=== PATIENT | female | born 1955 | race Caucasian/White ===

== ENCOUNTER → 2017-11-28 09:44 | Outpatient (CLI) | payer BC, SELFPAY ==
--- NOTE | 2017-11-28 09:48 | MM_ITS ---
MM Dig screening mamm BI w/CAD CAD Screening COMPARISON: Digital mammograms 11/24/2015 and 11/26/2016 INDICATION: Is a history of breast cancer in patient's mother diagnosed after menopause. TECHNIQUE: Standard CC and MLO images were obtained. R2 CAD reviewed. FINDINGS: The breasts are closed primarily of fat with minimal fibroglandular densities in the upper outer quadrants bilaterally. The findings are bilateral and symmetrical. There are couple benign-appearing calcifications in each breast. There is no suspicious lesion and no suspicious microcalcifications. IMPRESSION: Stable exam with no suspicious lesion seen BI-RADS Category: 2 Benign Finding(s) RECOMMENDED FOLLOW-UP: 1YR - 1 YEAR FOLLOW-UP (A letter has been sent to the patient regarding results of the study.)
== END ==
PROVIDERS: PCP Family Medicine; Visit Provider Family Medicine
DX: Z12.31 Encounter for screening mammogram for malignant neoplasm of breast (principal)
CPT/HCPCS: 77067

== ENCOUNTER → 2018-01-23 11:56 | Outpatient (CLI) | payer BC, SELFPAY ==
[2018-01-23 12:29] LABS: Basophils % 0.3 % (0.1-2.0); Eosinophils # 0.1 K/mm3 (0.0-0.4); Eosinophils % 0.9 % (0.1-12.0); Hematocrit 41.2 % (37.0-47.0); Hemoglobin 12.8 g/dL (12.2-16.2); Lymphocytes # 1.2 K/mm3 (0.7-4.5); Lymphocytes % 13.4 K/mm3 (10-50); Mean Corpuscular Hemoglobin 25.1 pg (27.0-31.2); Monocytes # 0.4 K/mm3 (0.1-1.0); Neutrophils # 7.1 K/mm3 (1.8-7.8); Neutrophils % 81.3 % (37.0-80.0); Platelet Count 226 K/mm3 (142-424); Red Blood Count 5.09 M/mm3 (4.20-5.40); Red Cell Distribution Width 13.6 % (11.5-17.5); White Blood Count 8.7 K/mm3 (4.8-10.8)
[2018-01-23 13:02] LABS: Alanine Aminotransferase 26 U/L (12-78); Albumin Level 3.5 gm/dL (3.4-5.0); Albumin/Globulin Ratio 0.9 (1.1-1.8); Alkaline Phosphatase 116 U/L (46-116); Anion Gap 10.5 mEq/L (5-15); Aspartate Amino Transferase 18 U/L (15-37); Bilirubin,Total 0.4 mg/dL (0.2-1.0); Blood Urea Nitrogen 16 mg/dL (7-18); Calcium 9.4 mg/dL (8.5-10.1); Carbon Dioxide 28 mmol/L (21.0-32.0); Chloride 104 mmol/L (98-107); Creatine Kinase 51 U/L (26-192); Creatine Kinase MB 0.5 ng/ml (0.0-3.6); Creatinine,Serum 0.89 mg/dL (0.55-1.02); Estimated Glomerular Filt Rate 65 ml/min (>60); GFR (African American) 78 ML/MIN (>60); Globulin 4.1 gm/dl (1.3-3.2); Glucose 135 mg/dL (74-106); Magnesium 1.7 mg/dL (1.4-2.2); Potassium 4.5 mmoL/L (3.5-5.1); Sodium 138 mmol/L (136-145); Total Protein,Serum 7.6 gm/dL (6.4-8.2); Troponin I < 0.02 ng/ml (0.00-0.06)
== END ==
PROVIDERS: Visit Provider Family Medicine
DX: R55 Syncope and collapse (principal)
CPT/HCPCS: 36415; 80053; 82550; 82553; 83735; 84484; 85025; 93005

== ENCOUNTER → 2018-12-08 10:10 | Outpatient (CLI) | payer BC, SELFPAY ==
--- NOTE | 2018-12-08 10:14 | MM_ITS ---
MM Dig screening mamm BI w/CAD ORDERING PHYSICIAN : Dony Lowry MD PATIENT AGE: 63 years GENDER: Female COMPARISON: October 2016, 2015. INDICATION: ITS.Routine SCREENING mammogram. No hormones. No new complaints... Family history. Mother with breast cancer postmenopausal TECHNIQUE: Standard CC and MLO images were obtained. R2 CAD reviewed. FINDINGS: Minimal residual fibroglandular elements bilaterally. Moderate fatty replacement no dominant mass nor suspicious mass.No architectural distortion. No suspicious Calcifications in either breast.. A few scattered benign calcifications bilaterally including some small scattered calcifications medial right and left breast . Benign-appearing axillary lymph nodes appear stable. . IMPRESSION: Stable bilateral mammogram with no significant areas of concern. . Lower density breast, facilitates mammography Bilateral follow-up in one year recommended BI-RADS Category: 1 Negative RECOMMENDED FOLLOW-UP: 1YR 1 YEAR FOLLOW-UP (A letter has been sent to the patient regarding results of the study.)
== END ==
PROVIDERS: PCP Family Medicine; Visit Provider Family Medicine
DX: Z12.31 Encounter for screening mammogram for malignant neoplasm of breast (principal)
CPT/HCPCS: 77067

== ENCOUNTER → 2019-11-24 18:00 | Outpatient (CLI) | payer BC, SELFPAY | PROVIDERS: Visit Provider Nurse Practitioner Family | DX: N39.0 Urinary tract infection, site not specified (principal) | CPT/HCPCS: 87086 ==

== ENCOUNTER → 2019-12-12 09:33 | Outpatient (CLI) | payer BC, SELFPAY ==
--- NOTE | 2019-12-12 09:38 | MM_ITS ---
PROCEDURE: MM DIG SCREENING MAMM BI W/CAD CLINICAL INDICATION: SCREENING There is a history of breast cancer in patient's mother. COMPARISON: [facility] DIG MAMM-SCREEN [facility] W/CAD from 11/26/2016 [facility] MM Dig screening mamm BI w/CAD from 11/28/2017 [facility] MM Dig screening mamm BI w/CAD from 12/08/2018 TECHNIQUE: Standard CC and MLO images and 3D Tomosynthesis was obtained. R2 CAD reviewed. FINDINGS: The breasts are composed primarily of fat with scattered fibroglandular densities in the central portions of both breasts. There is a benign-appearing calcification in each breast. There is no suspicious lesion in either breast and no suspicious microcalcifications. IMPRESSION: Fibrofatty parenchyma with no suspicious lesions seen BI-RAD Category: 2 Benign Finding(s) FOLLOW-UP: 1YR 1 Year Follow-up (A letter has been sent to the patient regarding results of the study.) Dictated by: Dr. Tien Newby MD 12/13/2019 11:[address] Tien Newby MD in [place] 12/13/2019 11:16
== END ==
PROVIDERS: PCP Family Medicine; Visit Provider Family Medicine
DX: Z12.31 Encounter for screening mammogram for malignant neoplasm of breast (principal)
CPT/HCPCS: 77063; 77067

== ENCOUNTER → 2020-12-30 08:42 | Outpatient (CLI) | payer BC, SELFPAY ==
--- NOTE | 2020-12-30 08:44 | XR_ITS ---
PROCEDURE: XR DEXA AXIAL SKELETON CLINICAL HISTORY: SCREENING FOR OSTEOPOROSIS The patient is postmenopausal currently taking vitamin-D and has a history of fracture as an adult COMPARISON: No exams were available for comparison FINDINGS: The right hip BMD is 0.770 g per cm sq with a T-score of -1.4. The left hip BMD is 0.637 g per cm squared with a T-score of -2.5. The lumbar spine BMD is 0.830 g per per cm squared with a T-score of -2.0. IMPRESSION: Osteoporosis value left hip, osteopenia values right hip and lumbar spine Based on these results a follow-up exam is recommended in 2 year. Dictated by: Dr. Tien Newby MD 12/30/2020 13:57 Dr. Tien Newby MD in [place] 12/30/2020 13:57
--- NOTE | 2020-12-30 08:45 | MM_ITS ---
PROCEDURE: MM DIG SCREENING MAMM BI W/CAD Digital Breast Tomosynthesis Included CLINICAL INDICATION: SCREENING There is a history of breast cancer in the patient's mother. COMPARISON: [facility] MM Dig screening mamm BI w/CAD from 11/28/2017 [facility] MM Dig screening mamm BI w/CAD from 12/08/2018 MG MM DIG SCREENING MAMM BI W/CAD from 12/12/2019 TECHNIQUE: Standard CC and MLO images and 3D Tomosynthesis was obtained. R2 CAD reviewed. FINDINGS: Scattered fibroglandular densities are seen throughout both breast and the findings are fairly symmetrical bilaterally. There are couple of benign-appearing microcalcifications in each breast. There is no suspicious lesion in either breast and no suspicious microcalcifications. There are stable small nodes in both axilla. IMPRESSION: Fibrofatty parenchyma with no suspicious lesions seen BI-RAD Category: 2 Benign Finding(s) FOLLOW-UP: 1YR 1 Year Follow-up (A letter has been sent to the patient regarding results of the study.) Dictated by: Dr. Tien Newby MD 12/31/2020 08:03 Dr. Tien Newby MD in [place] 12/31/2020 08:03
== END ==
PROVIDERS: PCP Family Medicine; Visit Provider Family Medicine
DX: Z12.31 Encounter for screening mammogram for malignant neoplasm of breast (principal); Z13.820 Encounter for screening for osteoporosis
CPT/HCPCS: 77063; 77067; 77080

== ENCOUNTER 2021-05-19 09:40 | Outpatient (CLI) | payer BC, SELFPAY ==
[2021-05-19 09:52] VITALS: BMI 31.8
[2021-05-19 10:12] LABS: Albumin Level 4.2 g/dl (3.5-5.0)
[2021-05-19 10:14] LABS: Creatinine Clearance Estimated 74 mL/min (50-200); Estimated Glomerular Filt Rate 72 ml/min (>60); GFR (African American) 88 ML/MIN (>60)
[2021-05-19 10:28] VITALS: BP 130/60; PULSE 83; RESP 17; TEMP 36.6; O2SAT 99
[2021-05-19 10:55] VITALS: BP 142/76; PULSE 81; RESP 17; O2SAT 99
== END 2021-05-19 11:00 | disposition home or self-care (01) ==
LOC: INF 09:47
PROVIDERS: Visit Provider Family Medicine
DX: M81.0 Age-related osteoporosis without current pathological fracture (principal)
CPT/HCPCS: 82040; 82310; 82565; 96365; J3489

== ENCOUNTER → 2021-12-31 10:06 | Outpatient (CLI) | payer BC, SELFPAY ==
--- NOTE | 2021-12-31 10:10 | MM_ITS ---
PROCEDURE INFORMATION: Exam: MG Bilateral Screening 3D Mammography Exam date and time: 12/31/2021 10:10 AM Age: 66 years old Clinical indication: Encounter for screening mammogram for malignant neoplasm of breast. Her mother had breast cancer at age 60. TECHNIQUE: Imaging protocol: Bilateral Screening tomosynthesis and 2D mammography including computer-aided detection (CAD) when performed. COMPARISON: No relevant prior studies available. If prior mammogram images are provided, I am happy to add an addendum. Only the reports (no images) were provided from 11/26/2016, 06/11/2019 and 12/13/2019. FINDINGS: MAMMOGRAPHY: Breast composition: The breasts are almost entirely fatty. Mass: No suspicious mass. Architectural distortion: None. Calcifications: No suspicious calcifications. Asymmetric density: None. Skin thickening: None. Axillary adenopathy: None. IMPRESSION: No mammographic evidence of malignancy. Annual screening is recommended unless otherwise clinically indicated. ASSESSMENT: BI-RADS Category 1: Negative
== END ==
PROVIDERS: PCP Family Medicine; Visit Provider Family Medicine
DX: Z12.31 Encounter for screening mammogram for malignant neoplasm of breast (principal)
CPT/HCPCS: 77063; 77067

== ENCOUNTER → 2022-01-13 12:48 | Outpatient (CLI) | payer BC, SELFPAY | PROVIDERS: PCP Family Medicine; Referring Provider Family Medicine; Visit Provider Family Medicine | DX: Z12.31 Encounter for screening mammogram for malignant neoplasm of breast (principal) ==

== ENCOUNTER 2022-05-21 09:45 | Outpatient (CLI) | payer BC, SELFPAY ==
[2022-05-21 09:45] VITALS: BMI 33.6
[2022-05-21 10:19] LABS: Albumin Level 4.3 g/dl (3.5-5.0)
[2022-05-21 10:22] LABS: Calcium 9.4 mg/dl (8.4-10.2); Creatinine Clearance Estimated 77 mL/min (50-200); Estimated Glomerular Filt Rate 72 ml/min (>60); GFR (African American) 87 ML/MIN (>60)
[2022-05-21 10:35] VITALS: BP 120/74; PULSE 68; RESP 20; TEMP 36.9; O2SAT 95
[2022-05-21 11:05] VITALS: BP 147/77; PULSE 78; RESP 20; TEMP 36.9; O2SAT 95
== END 2022-05-21 11:10 | disposition home or self-care (01) ==
LOC: INF 09:46
PROVIDERS: PCP Family Medicine; Visit Provider Family Medicine
DX: M81.0 Age-related osteoporosis without current pathological fracture (principal)
CPT/HCPCS: 82040; 82310; 82565; 96365; J3489

== ENCOUNTER → 2022-10-27 10:10 | Outpatient (CLI) | payer MEDICARE, BC, SELFPAY ==
[2022-10-27 18:34] LABS: Alanine Aminotransferase 30 U/L (12-78); Albumin Level 4.3 g/dl (3.5-5.0); Albumin/Globulin Ratio 1.5 (1.1-1.8); Alkaline Phosphatase 120 U/L (38-126); Anion Gap 14.1 mEq/L (5-15); Aspartate Amino Transferase 33 U/L (14-36); Bilirubin,Total 0.5 mg/dl (0.2-1.3); Blood Urea Nitrogen 16 mg/dl (7-17); Calcium 10.2 mg/dl (8.4-10.2); Carbon Dioxide 26 mmol/L (22.0-30.0); Chloride 105 mmol/L (98-107); Chol/HDL Ratio 2.6 (1-3.5); Cholesterol 156 mg/dl (140-200); Estimated Glomerular Filt Rate 63 ml/min (>60); GFR (African American) 76 ML/MIN (>60); Globulin 2.9 g/dL (1.3-3.2); Glucose 119 mg/dl (74-100); HDL Cholesterol 59 mg/dl (40-60); Potassium 4.1 mmoL/L (3.5-5.1); Sodium 141 mmol/L (136-145); Total Protein,Serum 7.2 g/dl (6.3-8.2); Triglycerides 232 mg/dl (30-150); VLDL Cholesterol 46 mg/dL (0-40)
[2022-10-27 18:45] LABS: Direct LDL Cholesterol 66.29 mg/dL (100-129)
[2022-10-27 18:47] LABS: Microalbumin/Creatinine Ratio 4.8
[2022-10-27 18:49] LABS: Creatinine,Urine Random 207 mg/dL (Not Estab.)
[2022-10-27 18:51] LABS: Basophils # 0.1 K/mm3 (0-0.2); Basophils % 0.9 % (0.1-2.0); Eosinophils # 0.2 K/mm3 (0.0-0.4); Eosinophils % 2.8 % (0.1-12.0); Hematocrit 39.8 % (37.0-47.0); Hemoglobin 12.3 g/dL (12.2-16.2); Lymphocytes # 1.3 K/mm3 (0.7-4.5); Mean Corpuscular HGB Conc 30.8 g/dL (31.8-35.4); Mean Corpuscular Hemoglobin 24.4 pg (27.0-31.2); Mean Corpuscular Volume 79.2 fl (81-99); Mean Platelet Volume 9.8 fl (7.4-10.4); Monocytes # 0.4 K/mm3 (0.1-1.0); Monocytes % 4.8 % (1.7-9.3); Neutrophils # 5.5 K/mm3 (1.8-7.8); Neutrophils % 73.6 % (37.0-80.0); Platelet Count 318 K/mm3 (142-424); Red Blood Count 5.03 M/mm3 (4.20-5.40); Red Cell Distribution Width 15.7 % (11.5-17.5); White Blood Count 7.5 K/mm3 (4.8-10.8)
[2022-10-27 19:04] LABS: Thyroid Stimulating Hormone 1.32 uIU/mL (0.465-4.68)
== END ==
PROVIDERS: PCP Family Medicine; Visit Provider Family Medicine
DX: I10 Essential (primary) hypertension (principal); E78.5 Hyperlipidemia, unspecified
CPT/HCPCS: 80053; 80061; 82043; 82570; 84443; 85025

== ENCOUNTER → 2023-01-18 08:58 | Outpatient (CLI) | payer MEDICARE, BC, SELFPAY ==
--- NOTE | 2023-01-18 08:58 | MM_ITS ---
PROCEDURE INFORMATION: Exam: MG Bilateral Screening 3D Mammography Exam date and time: 01/18/2023 9:02 AM Age: 67 years old Clinical indication: Screening mammogram TECHNIQUE: Imaging protocol: Bilateral Screening tomosynthesis and 2D mammography including computer-aided detection (CAD) when performed. COMPARISON: 1. MG MM DIG SCREENING MAMM BI W/CAD 01/13/2022 12:53 PM 2. MG MM DIG SCREENING MAMM BI W/CAD 12/30/2020 9:08 AM 3. MG MM DIG SCREENING MAMM BI W/CAD 12/12/2019 9:55 AM FINDINGS: MAMMOGRAPHY: Breast composition: There are scattered areas of fibroglandular density. Mass: None. Architectural distortion: No new or suspicious architectural distortion. Calcifications: No new or suspicious calcifications are present Asymmetric density: No new or suspicious asymmetric density is present Skin thickening: None. Axillary adenopathy: None. IMPRESSION: No mammographic evidence of malignancy. Recommend annual screening mammography unless otherwise clinically indicated. The ASSESSMENT: BI-RADS category 1: Negative
--- NOTE | 2023-01-18 08:58 | XR_ITS ---
FINAL REPORT TECHNIQUE: Bone densitometry calculations of the lumbar spine and hips were obtained. CLINICAL HISTORY: screening FINDINGS: DEXA BONE DENSITY AXIAL SKELETON Using L1-4, the bone mineral density of the spine is 0.887 g/cm2, corresponding to T-score of -1.5. Using the left hip, the bone mineral density of the total hip is 0.700 g/cm2, corresponding to a T-score of -2.0. Using the right hip, the bone mineral density of the femoral neck is 0.685 g/cm2, corresponding to a T-score of -1.5. NOTE: T-score: Standard deviation compared with peak bone mass of young adult mean. *Following the recommendations of the International Society of Bone densitometry, classification of hip BMD is based on the lower of two T-scores; total hip or femoral neck. IMPRESSION: Diminished bone mineral density of the lumbar spine and hips consistent with osteopenia. FRAX not reported because: Patient treated for osteoporosis. Reviewed, Interpreted and Dictated by Jens Pinon MD Transcribed by Miladys Correia Authenticated and [facility]
== END ==
PROVIDERS: PCP Family Medicine; Visit Provider Family Medicine
DX: M81.0 Age-related osteoporosis without current pathological fracture (principal); Z12.31 Encounter for screening mammogram for malignant neoplasm of breast
CPT/HCPCS: 77063; 77067; 77080

== ENCOUNTER 2023-11-03 09:59 | Outpatient (CLI) | payer MEDICARE, BC, SELFPAY ==
[2023-11-03 19:59] LABS: Basophils % 0.7 % (0.1-2.0); Eosinophils # 0.1 K/mm3 (0.0-0.4); Eosinophils % 1.3 % (0.1-12.0); Hematocrit 40.1 % (37.0-47.0); Lymphocytes # 1.5 K/mm3 (0.7-4.5); Lymphocytes % 26.1 % (10-50); Mean Corpuscular HGB Conc 32.4 g/dL (31.8-35.4); Mean Corpuscular Hemoglobin 25.7 pg (27.0-31.2); Mean Corpuscular Volume 79.5 fl (81-99); Mean Platelet Volume 10.3 fl (7.4-10.4); Monocytes # 0.4 K/mm3 (0.1-1.0); Monocytes % 6.2 % (1.7-9.3); Neutrophils # 3.7 K/mm3 (1.8-7.8); Neutrophils % 65.7 % (37.0-80.0); Platelet Count 280 K/mm3 (142-424); Red Blood Count 5.05 M/mm3 (4.20-5.40); Red Cell Distribution Width 15.5 % (11.5-17.5); White Blood Count 5.6 K/mm3 (4.8-10.8)
[2023-11-03 20:25] LABS: Chloride 105 mmol/L (98-107)
[2023-11-03 20:26] LABS: Potassium 4.3 mmoL/L (3.5-5.1); Sodium 141 mmol/L (136-145)
[2023-11-03 20:28] LABS: Alanine Aminotransferase 29 U/L (12-78); Alkaline Phosphatase 115 U/L (38-126); Anion Gap 13.3 mEq/L (5-15); Aspartate Amino Transferase 32 U/L (14-36); Bilirubin,Total 0.7 mg/dl (0.2-1.3); Blood Urea Nitrogen 11 mg/dl (7-17); Carbon Dioxide 27 mmol/L (22.0-30.0); Estimated Glomerular Filt Rate 55 ml/min (>60); GFR (African American) 67 ML/MIN (>60); Triglycerides 177 mg/dl (30-150); VLDL Cholesterol 35 mg/dL (0-40)
[2023-11-03 20:29] LABS: Albumin Level 4.3 g/dl (3.5-5.0); Albumin/Globulin Ratio 1.4 (1.1-1.8); Calcium 9.2 mg/dl (8.4-10.2); Chol/HDL Ratio 2.8 (1-3.5); Cholesterol 159 mg/dl (140-200); Globulin 3.1 g/dL (1.3-3.2); Glucose 116 mg/dl (74-100); HDL Cholesterol 57 mg/dl (40-60); Total Protein,Serum 7.4 g/dl (6.3-8.2)
[2023-11-03 20:40] LABS: Direct LDL Cholesterol 73.39 mg/dL (100-129)
[2023-11-03 21:00] LABS: Thyroid Stimulating Hormone 2.03 uIU/mL (0.465-4.68)
[2023-11-03 21:12] LABS: Creatinine,Urine Random 125 mg/dL (Not Estab.)
[2023-11-03 21:17] LABS: Microalbumin < 6.000 mg/L (0-16.7)
[2023-11-03 21:59] LABS: Hemoglobin A1C 5.6 % (4.0-6.0)
[2023-11-03 23:05] LABS: Vitamin B12 613 pg/mL (239-931)
== END 2023-11-04 23:59 | disposition home or self-care (01) ==
PROVIDERS: PCP Nurse Practitioner; Visit Provider Nurse Practitioner
DX: E78.5 Hyperlipidemia, unspecified (principal); F41.9 Anxiety disorder, unspecified; I10 Essential (primary) hypertension; J30.9 Allergic rhinitis, unspecified; K21.9 Gastro-esophageal reflux disease without esophagitis; Z79.899 Other long term (current) drug therapy
CPT/HCPCS: 80053; 80061; 82043; 82570; 82607; 83036; 84443; 85025

== ENCOUNTER 2024-01-20 12:52 | Outpatient (CLI) | payer MEDICARE, BC, SELFPAY ==
--- NOTE | 2024-01-20 12:53 | MM_ITS ---
PROCEDURE INFORMATION: Exam: MG Bilateral Screening 3D Mammography Exam date and time: 01/20/2024 12:50 PM Age: 68 years old Clinical indication: Screening examination TECHNIQUE: Imaging protocol: Bilateral Screening tomosynthesis and 2D mammography including computer-aided detection (CAD) when performed. COMPARISON: 1. MG MM DIG SCREENING MAMM BI W/CAD 01/18/2023 9:02 AM 2. MG MM DIG SCREENING MAMM BI W/CAD 01/13/2022 12:53 PM FINDINGS: MAMMOGRAPHY: Breast composition: There are scattered areas of fibroglandular density. Mass: There is a questionable 0.3cm mass in the middle third of the right approximate 12 o'clock axis. Architectural distortion: None. Calcifications: No suspicious calcifications. Asymmetric density: None. Skin thickening: None. Axillary adenopathy: None. IMPRESSION: Patient to be recalled for spot compression views of the right breast in the CC and MLO projections, a full 90 degree lateral view, and possible right breast ultrasound for further evaluation of a right breast mass. ASSESSMENT: BI-RADS Category 0: Incomplete- Need Additional Imaging Evaluation and/or Prior Mammograms for Comparison.
== END 2024-01-20 23:59 ==
PROVIDERS: PCP Nurse Practitioner; Visit Provider Nurse Practitioner
DX: Z12.31 Encounter for screening mammogram for malignant neoplasm of breast (principal)
CPT/HCPCS: 77063; 77067

== ENCOUNTER 2024-02-07 14:32 | Outpatient (CLI) | payer MEDICARE, BC, SELFPAY ==
--- NOTE | 2024-02-07 14:33 | US_ITS ---
PROCEDURE INFORMATION: Exam: US Right Breast, Complete MG Right Diagnostic Breast Tomosynthesis Exam date and time: 02/07/2024 3:56 PM Age: 68 years old Clinical indication: Patient recalled on the basis of a screening mammogram for further evaluation; Right breast; mass TECHNIQUE: Imaging protocol: Complete ultrasound of all four quadrants of the right breast and the retroareolar regions, including ultrasound of the axilla when performed. Right Diagnostic tomosynthesis and 2D mammography including computer-aided detection (CAD) when performed. Unilateral or bilateral exam. COMPARISON: MG MM DIG MAMM DX UNILAT RT CAD 02/07/2024 2:33 PM FINDINGS: MAMMOGRAPHY: Breast composition: There are scattered areas of fibroglandular density (based on the most recent screening mammogram report). Breast mammogram findings: Digital diagnostic spot compression views of the right breast and 90 degree lateral view of the right breast demonstrate normal overlapping fibroglandular structures without persistent mass or asymmetry identified. ULTRASOUND: Breast ultrasound findings: Sonographic images of the right breast including the retroareolar region, all 4 quadrants and the axilla do not demonstrate any solid or cystic masses. No architectural distortion or acoustical shadowing. No skin thickening or axillary adenopathy. IMPRESSION: No mammographic or sonographic evidence of malignancy. Annual bilateral mammographic screening is recommended unless otherwise clinically indicated. ASSESSMENT: BI-RADS Category 1: Negative.
== END 2024-02-07 23:59 ==
LOC: RAD 14:33
PROVIDERS: PCP Family Medicine; Visit Provider Nurse Practitioner
DX: R92.8 Other abnormal and inconclusive findings on diagnostic imaging of breast (principal)
CPT/HCPCS: 76641; 77061; 77065; G0279